=== PATIENT | male | born 1985 | race Caucasian/White ===

== ENCOUNTER → 2018-08-26 | Outpatient (CLI) | payer OTHER ==
[~2018-08-26] MED LIST: PROZAC20 MG; XANAX 0.5 MG0.5 MG
[2018-08-26 12:41] LABS: CSF GLUCOSE 56 mg/dl (40-70); CSF PROTEIN 48.6 mg/dl (15-45)
[2018-08-26 12:52] LABS: CSF CLARITY CLEAR; CSF COLOR COLORLESS; VOLUME 13 ml
[2018-08-26 13:09] LABS: CSF RBC 0.55 /mm3; CSF WBC 1.66 /mm3 (0-10)
[2018-08-29 15:08] LABS: CSF ALBUMIN 33 mg/dL (11-48); CSF IgG 1.8 mg/dL (0.0-8.6)
== END | disposition home or self-care (01) ==
LOC: M.RAD 10:00
PROVIDERS: Psychiatry & Neurology Neurology
DX: G35 Multiple sclerosis (principal); A69.20 Lyme disease, unspecified; A87.9 Viral meningitis, unspecified; R20.0 Anesthesia of skin; Z79.899 Other long term (current) drug therapy